=== PATIENT | female | born 2000 | race Caucasian/White ===

== ENCOUNTER 2023-12-31 00:52 | Emergency (ER) | payer SELFPAY ==
[2023-12-31 00:56] VITALS: BP 135/68; PULSE 89; RESP 15; TEMP 36.8; O2SAT 100
[2023-12-31 01:00] VITALS: BP 155/98; PULSE 92; RESP 17; O2SAT 100
--- NOTE | 2023-12-31 01:07 | ED.ALLEREA ---
HPI - Allergic Reaction General Chief complaint: Allergic Reaction Stated complaint: allergic reaction Time Seen by Provider: 12/31/23 00:55 Source: patient Mode of arrival: ambulatory Limitations: no limitations History of Present Illness HPI narrative: Patient is a 23-year-old female who presents the ED with concern for allergic reaction. Patient reports she was visiting home last week and used different laundry detergents and body wash/shower materials. She was also recently on antibiotics after having her wisdom teeth removed. Unsure of name of abx. Over the last 1 week, she has had intermittent hives/rash to her chest/abdomen/back/face/ears. She reports it is very itchy. She has been taking Benadryl intermittently with some improvement. Denies swelling of lips/tongue/throat, shortness of breath, voices changes, nausea, vomiting, abdominal pain, fevers. Related Data Allergies Allergy/AdvReac Type Severity Reaction Status Date / Time No Known Allergies Allergy Verified 12/31/23 00:59 Review of Systems Review of Systems: CONSTITUTIONAL: Denies fever, chills, or sweats. ENT: See HPI. CARDIOVASCULAR: Denies chest pain, palpitations, or edema. RESPIRATORY: Denies cough or dyspnea. GASTROINTESTINAL: Denies abdominal pain, nausea, vomiting. NEUROLOGIC: Denies headache, dizziness, numbness, or weakness. All systems reviewed & are unremarkable except as noted in HPI and below Exam Narrative: GENERAL: Well appearing, well-nourished, non-toxic, in no acute distress. HEAD: Normocephalic, atraumatic. ENT: Mucosa normal. MMs moist. No angioedema. No stridor or trismus. TMs are clear bilaterally. Bilateral ear pinnas are erythematous and mildly swollen, no tenderness. RESPIRATORY: Airway patent, respirations nonlabored. Clear to auscultation bilaterally, no rales, rhonchi, wheezing. No stridor or distress. No focal lung sounds. CARDIOVASCULAR: Regular rate and rhythm without murmurs, rubs, or gallops. MUSCULOSKELETAL: Moves all extremities. No gross deformities. SKIN: Warm, dry, normal color. Scattered blotches of erythema/urticaria to face, neck, right upper chest, upper abdomen. NEURO: A&O X3. Speech clear. PSYCHIATRIC: Mildly anxious. Normal interaction. Course Vital Signs Vital signs: Vital Signs Temperature 98.2 F 12/31/23 00:56 Pulse Rate 89 12/31/23 00:56 Respiratory Rate 15 12/31/23 00:56 Blood Pressure 135/68 12/31/23 00:56 Pulse Oximetry 100 12/31/23 00:56 Oxygen Delivery Room Air 12/31/23 00:56 Temperature 98.2 F 12/31/23 00:56 Pulse Rate 92 12/31/23 01:00 Respiratory Rate 17 12/31/23 01:00 Blood Pressure 155/98 H 12/31/23 01:00 Pulse Oximetry 100 12/31/23 01:00 Oxygen Delivery Room Air 12/31/23 01:00 MDM - Allergic Reaction MDM Narrative Medical decision making narrative: Patient presented to ED with allergic reaction, multiple possible triggers. Denies any known allergens. VSS upon arrival. No signs of anaphylaxis or airway compromise at this time. No 2 system involvement. Patient given Benadryl, Pepcid, Solu-Medrol with improvement. Will discharge on Medrol Dosepak. Given strict return precautions. Advised patient to D/C new antibiotic, avoid future use. Recommended follow-up with PCP for further evaluation. Discharged in stable condition. Medical Records Attestation: I reviewed the patient's medical records. Discharge Plan Discharge Clinical Impression: Allergic reaction Patient Disposition: Home, Self-Care Condition: Stable Instructions: Antibiotic Form, Urticaria (ED), Acute Rash (ED), Allergies (ED) Additional Instructions: Take steroids as prescribed over next several days. You may continue to take Benadryl and Pepcid as needed for itching. Follow-up with your primary care doctor for further evaluation. Return to the ED if you experience worsening or severe rash, difficulty breathing or swallowing, swelling of lips/tongue/
[2023-12-31] MEDS: FAMOTIDINE 20 MG TABLET PO (01:10)
[2023-12-31] MEDS: methylPREDNISolone SOD SUCC 125 MG VIAL IM (01:10)
[2023-12-31] MEDS: diphenhydrAMINE HCl CAP 25 MG CAPSULE PO (01:10)
== END 2023-12-31 04:43 | disposition home or self-care (01) ==
LOC: ANHED 01:11
PROVIDERS: Emergency Provider Physician Assistant
DX: T78.40XA Allergy, unspecified, initial encounter (principal)
CPT/HCPCS: 96372; 99283; A9270; J2919